=== PATIENT | female | born 1995 | race American Indian/Alaskan Native ===

== ENCOUNTER 2016-11-25 23:36 | Emergency (ER) | payer MEDICAID ==
[2016-11-26 00:34] LABS: Basophils % (Auto) 0.6 % (0.0-1.8); Eosinophils % (Auto) 3.1 % (0.0-4.3); Hematocrit 34.4 % (30.3-42.9); Hemoglobin 11.3 gm/dl (10.1-14.3); Mean Corpuscular HGB Conc 33 % (30-34); Mean Corpuscular Hemoglobin 28 pg (28-32); Mean Corpuscular Volume 87 fl (79-97); Platelet Count 322 K/mm3 (140-440); Red Blood Count 3.97 M/mm3 (3.65-5.03); Red Cell Distribution Width 13.4 % (13.2-15.2); White Blood Count 9.9 K/mm3 (4.5-11.0)
[2016-11-26 00:56] LABS: Alanine Aminotransferase 8 units/L (7-56); Albumin 3.4 g/dL (3.9-5); Albumin/Globulin Ratio 1.2 %; Alkaline Phosphatase 36 units/L (35-129); Anion Gap 14 mmol/L; Bilirubin,Total 0.2 mg/dL (0.1-1.2); Blood Urea Nitrogen 15 mg/dL (7-17); Carbon Dioxide 25 mmol/L (22-30); Chloride 102.6 mmol/L (98-107); Glucose 94 mg/dL (65-100); Lipase 32 units/L (13-60); Potassium 3.5 mmol/L (3.6-5.0); Sodium 138 mmol/L (137-145); Total Protein 6.3 g/dL (6.3-8.2)
[2016-11-26 04:40] LABS: Bacteria,Urine 1+ /HPF (Negative); Bilirubin,Urine NEG (Negative); Blood,Urine NEG (Negative); Ketones,Urine NEG (Negative); Leukocyte Esterase,Urine LG (Negative); Mucus,Urine 3+ /HPF; Nitrite,Urine NEG (Negative); Urobilinogen,Urine < 2.0 mg/dL (<2.0)
--- NOTE | 2016-11-26 05:09 | Ultrasound Report ---
FINAL REPORT PROCEDURE: US OB \T\gt; = 14 WEEKS FETUS TECHNIQUE: Real-time transabdominal sonography of the uterus, placenta, amniotic fluid, adnexa, and fetus was performed with image documentation. Measurements were obtained to determine age/size. M-mode Doppler was used to document heartbeat. CPT 61611 HISTORY: Pelvic and abdominal pain in . COMPARISON: No prior studies are available for comparison. FINDINGS: There is single live intrauterine fetus. The fetus is in breech presentation during the exam. heart rate noted at 137 beats per minute. Subjectively the amniotic fluid appears within normal limits. The placenta is posterior with no evidence of placenta previa. The cervix is closed with a length of 4.3 centimeters. There are no gross anomalies noted. However the spine could not be optimally seen due to position. Composite measurements for this fetus give an age of 19 weeks and 5 days which gives a due date of April 17, 2017 based on this exam. IMPRESSION: 1. There is a single live intrauterine fetus. 2. Fetus is in breech presentation during the exam. 3. Composite measurements give an age of 19 weeks and 5 days which gives a due date of April 17, 2017 based on this exam. There no prior ultrasound exams to compare. 4. There are no gross anomalies noted. However due to positioning, the spine could not be optimally imaged.
[2016-11-26] MEDS ORDERED: SODIUM CHLORIDE IV ONE (06:19)
[2016-11-26] MEDS ORDERED: CEFTRIAXONE IV ONE (06:19)
--- NOTE | 2016-11-26 07:08 | Emergency Department Report ---
ED General Adult HPI - General Chief complaint: Abdominal Pain Stated complaint: STOMACH PAIN Time Seen by Provider: 11/26/16 06:17 Source: patient Mode of arrival: Ambulatory Limitations: No Limitations - History of Present Illness Initial comments: The pt c/o vague periumbilical abd discomfort that has now resolved. She is currently 19 weeks and 5 days I ultrasound yesterday. She had a normal heart rate. The placenta was posterior cervical length was 4.3 cm. No abnormality was noted. Patient denied any urinary type symptoms. She' s had no vaginal bleeding. She is a patient of my [facility]. -: Gradual, hour(s) Location: abdomen Radiation: non-radiation Severity scale (0 -10): 4 Quality: other (cramping) Consistency: now resolved Improves with: none Worsens with: none Associated Symptoms: denies other symptoms - Related Data Home Medications Medication Instructions Recorded Confirmed Last Taken Pnv with Ca,No.72/Iron/FA [Pnv 1 tab PO DAILY 03/01/15 03/01/15 Unknown Plus Multivit Tab] Previous Rx's Medication Instructions Recorded Last Taken Type Lidocaine/Prilocaine [Emla Cream] 5 gm TP ONCE #1 cream..g. 03/02/15 Unknown Rx Allergies Allergy/AdvReac Type Severity Reaction Status Date / Time peanut Allergy Angioedema Verified 08/04/14 15:58 ED Review of Systems ROS: Stated complaint: STOMACH PAIN Other details as noted in HPI Constitutional: denies: chills, fever Eyes: denies: eye pain, eye discharge, vision change ENT: denies: ear pain, throat pain Respiratory: denies: cough, shortness of breath, wheezing Cardiovascular: denies: chest pain, palpitations Endocrine: no symptoms reported Gastrointestinal: abdominal pain. denies: nausea, diarrhea Genitourinary: denies: urgency, dysuria, discharge Musculoskeletal: denies: back pain, joint swelling, arthralgia Skin: denies: rash, lesions Neurological: denies: headache, weakness, paresthesias Psychiatric: denies: anxiety, depression Hematological/Lymphatic: denies: easy bleeding, easy bruising ED Past Medical Hx - Past Medical History Previous Medical History?: No Hx Hypertension: No Hx Congestive Heart Failure: No Hx Diabetes: No Hx Deep Vein Thrombosis: No Hx Renal Disease: No Hx Sickle Cell Disease: No Hx Seizures: No Hx Asthma: No Hx COPD: No Hx HIV: No - Surgical History Past Surgical History?: No - Social History Smoking Status: Never Smoker Substance Use Type: None - Medications Home Medications: Home Medications Medication Instructions Recorded Confirmed Last Taken Type Pnv with Ca,No.72/Iron/FA [Pnv 1 tab PO DAILY 03/01/15 03/01/15 Unknown History Plus Multivit Tab] Lidocaine/Prilocaine [Emla Cream] 5 gm TP ONCE #1 cream..g. 03/02/15 Unknown Rx ED Physical Exam - General Limitations: No Limitations General appearance: alert, in no apparent distress - Head Head exam: Present: atraumatic, normocephalic - Eye Eye exam: Present: normal appearance. Absent: scleral icterus - ENT ENT exam: Present: normal exam, mucous membranes moist - Neck Neck exam: Present: normal inspection - Respiratory Respiratory exam: Present: normal lung sounds bilaterally. Absent: respiratory distress - Cardiovascular Cardiovascular Exam: Present: regular rate, normal rhythm. Absent: systolic murmur, diastolic murmur, rubs, gallop - GI/Abdominal GI/Abdominal exam: Present: soft, normal bowel sounds. Absent: distended, tenderness, guarding, rebound, rigid - Extremities Exam Extremities exam: Present: normal inspection - Back Exam Back exam: Present: normal inspection - Neurological Exam Neurological exam: Present: alert, oriented X3, CN II-XII intact. Absent: motor sensory deficit - Psychiatric Psychiatric exam: Present: normal affect, normal mood - Skin Skin exam: Present: warm, dry, intact, normal color. Absent: rash ED Course Vital Signs 11/25/16 11/26/16 11/26/16 23:43 03:36 03:38 Temperature 97.7 F 98.9 F Pulse Rate 92 H 82 Respiratory 20 14 14 Rate Blood Pressure 112/74 Blood Pressure 108/61 [Left] O2 Sat by Pulse 98 100 100 Oximetry - Reevaluation(s) Reevaluation #1: Discussed with Dr. Dobbs. She did not recommend monitoring or admission. She will be leaving a prescription for [facility] to [facility]. She will be following up with the patient. Culture is pending. 11/26/16 07:14 ED Medical Decision Making - Lab Data Result diagrams: 11/26/16 00:24 11/26/16 00:24 Laboratory Results - last 24 hr 11/26/16 11/26/16 11/26/16 00:24 00:24 00:24 WBC 9.9 RBC 3.97 Hgb 11.3 Hct 34.4 MCV 87 MCH 28 MCHC 33 RDW 13.4 Plt Count 322 Lymph % (Auto) 18.3 [place] % (Auto) 7.8 H Eos % (Auto) 3.1 Baso % (Auto) 0.6 Lymph # 1.8 [place] # 0.8 Eos # 0.3 Baso # 0.1 Seg Neutrophils % 70.2 H Seg Neutrophils # 6.9 Sodium 138 Potassium 3.5 L Chloride 102.6 Carbon Dioxide 25 Anion Gap 14 BUN 15 Creatinine 0.6 L Estimated GFR > 60 BUN/Creatinine Ratio 25.00 Glucose 94 Calcium 9.0 Total Bilirubin 0.2 AST 11 ALT 8 Alkaline Phosphatase 36 Total Protein 6.3 Albumin 3.4 L Albumin/Globulin Ratio 1.2 Lipase 32 HCG, Qual Positive HCG, Quant Urine Color Urine Turbidity Urine pH Ur Specific [place] Urine Protein Urine Glucose (UA) Urine Ketones Urine Blood Urine Nitrite Urine Bilirubin Urine Urobilinogen Ur Leukocyte Esterase Urine WBC (Auto) Urine RBC (Auto) U Epithel Cells (Auto) Urine Bacteria (Auto) Urine Mucus 11/26/16 11/26/16 00:24 03:35 WBC RBC Hgb Hct MCV MCH MCHC RDW Plt Count Lymph % (Auto) [place] % (Auto) Eos % (Auto) Baso % (Auto) Lymph # [place] # Eos # Baso # Seg Neutrophils % Seg Neutrophils # Sodium Potassium Chloride Carbon Dioxide Anion Gap BUN Creatinine Estimated GFR BUN/Creatinine Ratio Glucose Calcium Total Bilirubin AST ALT Alkaline Phosphatase Total Protein Albumin Albumin/Globulin Ratio Lipase HCG, Qual HCG, Quant 06792 H Urine Color Yellow Urine Turbidity Slightly-cloudy Urine pH 7.0 Ur Specific [place] 1.031 H Urine Protein 30 mg/dl Urine Glucose (UA) Neg Urine Ketones Neg Urine Blood Neg Urine Nitrite Neg Urine Bilirubin Neg Urine Urobilinogen < 2.0 Ur Leukocyte Esterase Lg Urine WBC (Auto) 151.0 H Urine RBC (Auto) 8.0 U Epithel Cells (Auto) 37.0 H Urine Bacteria (Auto) 1+ Urine Mucus 3+ - Radiology Data Radiology results: report reviewed interpreted by me: US reviewed with Dr. Dobbs. Critical care attestation.: If time is entered above; I have spent that time in minutes in the direct care of this critically ill patient, excluding procedure time. ED Disposition Clinical Impression: with 19 completed weeks gestation Acute cystitis Qualifiers: Hematuria presence: with hematuria Qualified Code(s): N30.01 - Acute cystitis with hematuria Disposition: DISCHARGED TO HOME OR SELFCARE Is pt being admited?: No Does the pt Need Aspirin: No Condition: Stable Instructions: Abdominal Pain (ED), Urinary Tract Infection in Women (ED), (ED) Additional Instructions: Follow up with Dr. Dobbs. Return any acute change or problem. Go to [facility] for your antibiotic prescription called in by Dr. Dobbs. Referrals: PRIMARY CARE, [Primary Care Provider] - 3-5 Days [facility] [Provider Group] - 2-3 Days Time of Disposition: 07:21
[2016-11-26 07:58] VITALS: BP 97/54
== END 2016-11-26 08:26 | disposition home or self-care (01) ==
LOC: ED 23:36
DX: O23.92 Unspecified genitourinary tract infection in pregnancy, second trimester (principal); N30.01 Acute cystitis with hematuria; Z91.010 Allergy to peanuts; Z3A.19 19 weeks gestation of pregnancy
CPT/HCPCS: 36415; 76805; 80053; 81001; 83690; 84702; 84703; 85025; 87086; 96365; 99284; J0696

== ENCOUNTER 2017-04-13 19:14 | Outpatient (CLI) | payer MEDICAID ==
[2017-04-13 19:44] VITALS: BP 107/64
[2017-04-13] MEDS ORDERED: LACTATED RINGERS 1,000 ML IV ONE (20:05)
[2017-04-13] MEDS ORDERED: VISTARIL PO ONE (20:30)
== END 2017-04-13 21:30 | disposition home or self-care (01) ==
LOC: TRG 19:14
PROVIDERS: ATTEND Obstetrics & Gynecology
DX: O47.03 False labor before 37 completed weeks of gestation, third trimester (principal); O26.893 Other specified pregnancy related conditions, third trimester; Z3A.39 39 weeks gestation of pregnancy
CPT/HCPCS: 59025; 96360; J7120

== ENCOUNTER 2017-04-15 04:16 | Inpatient (IN) | payer MEDICAID ==
[2017-04-15] MEDS ORDERED: STADOL ONE (04:41)
[2017-04-15] MEDS ORDERED: LACTATED RINGERS 1,000 ML ONE (04:41)
[2017-04-15] MEDS ORDERED: POLYCILLIN/NS 2 GM/100 ML 2 GM/100 ML BAG IV ONE (04:42)
[2017-04-15] MEDS ORDERED: BRETHINE IVP PRN ×2 (04:42→05:26)
[2017-04-15] MEDS ORDERED: ePHEDrine SULFATE IV PRN ×3 (04:42→05:49)
[2017-04-15] MEDS ORDERED: MINERAL OIL PO PRN (04:42)
[2017-04-15] MEDS ORDERED: XYLOCAINE 2% INFILTRATI ONE ×2 (04:42→05:26)
[2017-04-15] MEDS ORDERED: BRETHINE SUB-Q PRN ×2 (04:42→05:26)
[2017-04-15] MEDS ORDERED: STADOL IV PRN (04:42)
[2017-04-15] MEDS: LACTATED RINGERS 1,000 ML IV SCH ×2 (04:54→06:36)
[2017-04-15] MEDS ORDERED: PITOCin/NS 20 UNIT/1000ML DRIP 20 UNITS/1,000 ML BAG IV SCH (05:00)
--- NOTE | 2017-04-15 05:19 | History and Physical Report ---
History of Present Illness Date of examination: 04/15/17 Date of admission: 04/15/17 04:25 Chief complaint: 21 yo at 39wk 3d with EDC 04/19/2017 admitted in active labor 4 cm with bulging membranes. GBS neg, Rub IM History of present illness: Remainder of H&P from [facility] and confirmed today OB Intake Father of baby: Edison Melton Vital Signs Height: 64 in. Weight (lb): 140 BMI: 24.1 BP: 110/ 60 mm Hg Ur. Protein: Negative Ur. Glucose: Negative Chief Complaint/Current Status: pt presents for missed period; c/o vomitting..tward LMP 07/13 some vomiting Menstrual History Regularity: regular Menses every: 28 days Duration: 3 LMP: 07/13/2016 LMP reliability: definite LMP character: normal test type: urine test Date: 09/21/2016 BC at conception: none Planned ? yes EDC Calculations LMP: 04/19/2017 EDC Confirmation: 04/19/2017 Gestational Age: 10 weeks EDC Confirmation: 04/19/2017 Past History : 2 Term Births: 1 Living Children: 1 # 1 Delivery date: 02/28/2015 Weeks Gestation: 39 10/17 Delivery type: Vaginal Delivery location: [facility] Infant Sex: male weight: 6.75 Comments: none Risk Factors: Smoked Tobacco Use: Never smoker Smokeless Tobacco Use: Never Passive smoke exposure: no Drug use: no HIV high-risk behavior: low risk Alcohol use: no Past Medical History: Reviewed history from 08/24/2014 and no changes required: none Past Surgical History: Reviewed history from 08/24/2014 and no changes required: negative Past Medical History Anesthesia Complications: negative Anemia: negative Autoimmune Disorder: negative Bleeding Disorder: negative Blood Transfusions: negative Breast Disease: negative Diabetes: negative Heart Disease: negative Hypertension: negative Hepatitis/Liver Disease: negative Kidney Disease/UTI: negative Neurologic/Epilepsy/Migraines: negative Phlebitis/Varicosities: negative Psychiatric: negative Pulmonary Disease/Asthma: negative Thyroid Disease: negative Hospitalizations: negative Surgery (Non-bus driver/monitor): negative Abnormal PAP: negative MODESTA Exposure: negative Infertility: negative Uterine Anomaly: negative Uterine Surgery (not C/S): negative Other Gynecologic Problems: negative Social Hx: [facility] Smoking History: Patient has never smoked. Infection History Hx of STD: none HIV Risk Eval: low risk Hepatitis B Risk Eval: low risk Personal hx. of genital herpes: no Partner hx. of genital herpes: no Varicella/Chicken Pox Status: Previous Disease Genetic History Congenital Heart Defect: Mom: no Dad: no Alayna Disease: Mom: no Dad: no Thalassemia Mom: no Dad: no Neural Tube Defect Mom: no Dad: no Down's Syndrome Mom: no Dad: no Jerson-Sachs Mom: no Dad: no Sickle Cell Disease/Trait Mom: no Dad: no Hemophilia Mom: no Dad: no Muscular Dystrophy Mom: no Dad: no Cystic Fibrosis Mom: no Dad: no [place] Chorea Mom: no Dad: no Mental Retardation Mom: no Dad: no Fragile X Mom: no Dad: no Other Genetic/Chromosomal Disorder Mom: no Dad: no Child w/other defect Mom: no Dad: no Enviromental Exposures Xray Exposure: no Medication, drug, or alcohol use since LMP: no Chemical/Other Exposure: no Exposure to Cat Liter: no Active Medications: None Current Allergies (reviewed today): No known allergies Laboratory Results Date/Time Collected: 09/21/2016 Routine Urinalysis Leukocytes: negative Nitrite: negative Urobilinogen: negative Protein: Negative Blood: negative Ketone: negative Bilirubin: negative Glucose: Negative Urine HCG: positive Review of Systems General Denies fever, chills, sweats, anorexia, fatigue, weakness, malaise, weight loss and sleep disorder. Denies nausea, vomiting, headache, swelling of legs, abdominal pain, vaginal discharge, vaginal bleeding and contractions. Denies vaginal discharge, incontinence, dysuria, hematuria, urinary frequency, amenorrhea, menorrhagia, abnormal vaginal bleeding, pelvic pain, genital sores, decreased libido, painful periods, painful sex, urinary urgency, hot flashes, vaginal dryness, vaginal itching and vaginal odor. CV Denies chest pains, palpitations, syncope, dyspnea on exertion, orthopnea, PND and peripheral edema. Resp Denies cough, dyspnea at rest, excessive sputum, hemoptysis, wheezing and pleurisy. GI Denies nausea, vomiting, diarrhea, constipation, change in bowel habits, abdominal pain, melena, hematochezia, jaundice, gas/bloating, indigestion/ heartburn, dysphagia and odynophagia. Endo Denies cold intolerance, heat intolerance, polydipsia, polyphagia, polyuria and unusual weight change. Breast Denies left breast lump, right breast lump, nipple discharge, bloody discharge from nipple, breast pain, abnormal mammogram and breast enlargement. MS Denies back pain, joint pain, joint swelling, muscle cramps, muscle weakness, stiffness, arthritis, sciatica, restless legs, leg pain at night and leg pain with exertion. Derm Denies rash, itching, dryness and suspicious lesions. Neuro Denies paralysis, paresthesias, headache, seizures, tremors, vertigo, transient blindness, frequent falls, frequent headaches and difficulty walking. Psych Denies depression, anxiety, irritability and mood swings. Eyes Denies blurring, diplopia, irritation, discharge, vision loss, eye pain and photophobia. ENT Denies earache, ear discharge, tinnitus, decreased hearing, nasal congestion, nosebleeds, sore throat and hoarseness. Allergy Denies urticaria, allergic rash, hay fever and recurrent infections. Heme Denies abnormal bruising, bleeding and enlarged lymph nodes. PHYSICAL EXAM HEENT: PERRLA, normal conjunctiva, external nose and nasal mucosa normal, oropharynx clear Neck/Thyroid: supple, thyroid normal Skin no significant abnormal lesions or rashes Chest: respiratory effort normal, clear to auscultation Breasts: normal without skin changes or masses CV: regular, normal S1-S2, no murmur, no rub, no gallop Abdomen: normal bowel sounds, soft, nontender, no HSM Musculoskeletal: grossly normal ROM in joints, no joint tenderness or muscle weakness Neuro: grossly normal DTRs, sensation, strength, cranial nerves Extremities: no clubbing, cyanosis, or edema [employer]LECT[employer]LE [employer] Exams Vulva/Vagina: No lesions, normal BUS, normal rugae Cervix: No lesions; no cervical motion tenderness Uterus: normal size and position, midline, mobile--9 week size, can't hear FHT but baby crying in room Adnexae: no masses or tenderness Rectovaginal: no masses or tenderness Flowsheet View for Follow-up Visit Estimated weeks of gestation: 10 Weight: 140 Blood pressure: 110 / 60 Urine protein: Negative Urine glucose: Negative Urine nitrite: negative Past History - Obstetrical History : 2 Medications and Allergies Allergies Allergy/AdvReac Type Severity Reaction Status Date / Time peanut Allergy Angioedema Verified 08/04/14 15:58 Home Medications Medication Instructions Recorded Confirmed Last Taken Type Pnv with Ca,No.72/Iron/FA [Pnv 1 tab PO DAILY 03/01/15 03/01/15 Unknown History Plus Multivit Tab] Lidocaine/Prilocaine [Emla Cream] 5 gm TP ONCE #1 cream..g. 03/02/15 Unknown Rx Active Meds: Active Medications Butorphanol Tartrate (Stadol) 2 mg IV Q2H PRN PRN Reason: Pain , Severe (7-10) Last Admin: 04/15/17 04:53 Dose: 2 mg Ampicillin Sodium (Polycillin/Ns 2 Gm/100 Ml) 2 gm in 100 mls @ 100 mls/hr IV ONCE ONE PRN Reason: Protocol Stop: 04/15/17 05:41 Last Admin: 04/15/17 05:15 Dose: 100 mls/hr Lactated Ringer's (Lactated Ringers) 1,000 mls @ 125 mls/hr IV DIRECT ANDREIA Last Admin: 04/15/17 04:54 Dose: 125 mls/hr Oxytocin/Sodium Chloride (Pitocin/Ns 20 Unit/1000ml Drip) 20 units in 1,000 mls @ 125 mls/hr IV DIRECT ANDREIA Mineral Oil (Mineral Oil) 30 ml PO QHS PRN PRN Reason: Constipation - Vital Signs Vital signs: Vital Signs Resp 18 04/15/17 04:53 Temp Pulse Resp BP Pulse Ox 18 04/15/17 04:53 Results All other labs normal. Assessment and Plan - Patient Problems (1) Active labor at term Onset Date: 04/15/17 Current Visit: No Status: Acute (2) 39 weeks gestation of Onset Date: 04/12/17 Current Visit: No Status: Acute
[2017-04-15 05:23] LABS: Hematocrit 36.4 % (30.3-42.9); Hemoglobin 12.2 gm/dl (10.1-14.3); Mean Corpuscular HGB Conc 34 % (30-34); Mean Corpuscular Hemoglobin 28 pg (28-32); Mean Corpuscular Volume 84 fl (79-97); Platelet Count 309 K/mm3 (140-440); Red Blood Count 4.33 M/mm3 (3.65-5.03); Red Cell Distribution Width 14.9 % (13.2-15.2); White Blood Count 8.3 K/mm3 (4.5-11.0)
[2017-04-15] MEDS ORDERED: ZOFRAN IV PRN (05:26)
[2017-04-15] MEDS ORDERED: NARCAN 0.4 MG/1 ML IV PRN (05:26)
[2017-04-15] MEDS ORDERED: NARCAN 2 MG/2 ML IV PRN (05:49)
--- NOTE | 2017-04-15 05:49 | Anesthesia Consultation ---
Anesthesia Consult and Med Hx Date of service: 04/15/17 - Airway Anesthetic Teeth Evaluation: Good ROM Head & Neck: Adequate Mental/Hyoid Distance: Adequate Mallampati Class: Class II Intubation Access Assessment: Good - Pulmonary Exam CTA: Yes - Cardiac Exam Cardiac Exam: No Murmur - Pre-Operative Health Status ASA Pre-Surgery Classification: ASA2 Proposed Anesthetic Plan: Epidural - Pulmonary Hx Asthma: No COPD: No Hx Pneumonia: No - Cardiovascular System Hx Hypertension: No - Central Nervous System Hx Seizures: No Hx Psychiatric Problems: No - Endocrine Hx Renal Disease: No Hx End Stage Renal Disease: No Hx Hypothyroidism: No Hx Hyperthyroidism: No - Hematic Hx Anemia: No Hx Sickle Cell Disease: No - Other Systems Hx Alcohol Use: No
[2017-04-15] MEDS ORDERED: ePHEDrine SULFATE ONE ×2 (05:59→06:06)
[2017-04-15] MEDS ORDERED: fentaNYL-BUPIV 2 MCG/ML-0.125% 200 MCG/100 ML BAG EPIDURAL SCH (06:00)
--- NOTE | 2017-04-15 06:24 | Progress Note ---
Assessment and Plan Epidural placed AROM thick meconium ISE applied SVE 8,100,0 Re-eval as needed Anticipate delivery Subjective - Subjective Date of service: 04/15/17 (comfortable with epidural) Patient reports: movement normal Objective - Vital Signs Vital Signs: Vital Signs - 12hr 04/15/17 04/15/17 04/15/17 04:53 05:32 05:33 Pulse Rate 99 H 104 H Respiratory 18 Rate Blood Pressure 136/63 O2 Sat by Pulse 98 Oximetry 04/15/17 04/15/17 04/15/17 05:34 05:35 05:36 Pulse Rate 96 H 99 H 101 H Respiratory Rate Blood Pressure 133/66 134/63 O2 Sat by Pulse 86 Oximetry 04/15/17 04/15/17 04/15/17 05:38 05:40 05:41 Pulse Rate 97 H 98 H 97 H Respiratory Rate Blood Pressure 128/67 142/66 O2 Sat by Pulse 98 Oximetry 04/15/17 04/15/17 04/15/17 05:42 05:44 05:46 Pulse Rate 109 H 99 H 92 H Respiratory Rate Blood Pressure 124/59 119/64 128/70 O2 Sat by Pulse Oximetry 04/15/17 04/15/17 04/15/17 05:48 05:50 05:52 Pulse Rate 88 86 87 Respiratory Rate Blood Pressure 132/71 123/62 111/62 O2 Sat by Pulse Oximetry 04/15/17 04/15/17 04/15/17 05:54 05:56 05:58 Pulse Rate 85 98 H 88 Respiratory Rate Blood Pressure 107/57 108/57 98/54 O2 Sat by Pulse Oximetry 04/15/17 04/15/17 04/15/17 06:00 06:02 06:04 Pulse Rate 83 88 86 Respiratory Rate Blood Pressure 118/57 119/64 123/63 O2 Sat by Pulse 99 Oximetry 04/15/17 04/15/17 04/15/17 06:05 06:06 06:08 Pulse Rate 91 H 91 H 97 H Respiratory Rate Blood Pressure 123/58 121/57 O2 Sat by Pulse 99 Oximetry 04/15/17 04/15/17 04/15/17 06:10 06:12 06:14 Pulse Rate 92 H 94 H 94 H Respiratory Rate Blood Pressure 122/58 123/57 124/61 O2 Sat by Pulse 100 Oximetry 04/15/17 04/15/17 06:15 06:16 Pulse Rate 87 93 H Respiratory Rate Blood Pressure 115/58 O2 Sat by Pulse 98 Oximetry - Exam Breasts: deferred Cardiovascular: Regular rate Lungs: Normal air movement Abdomen: Present: normal appearance, soft. Absent: distention, tenderness Uterus: Present: normal FHR: auscultation normal, category 2 (variables r/t hypotension after epidural Resolved with fluid, ephedrin, and position chg) Uterine Contraction Monitor Mode: Internal Cervical Dilatation: 8 (AROM thick meconium) Cervical Effacement Percentage: 100 (ISE placed) station: 0 Uterine Contraction Pattern: Irregular Uterine Contraction Intensity: Moderate Extremities: normal Deep Tendon Reflex Grade: Normal +2 - Labs Labs: Laboratory Results - last 24 hr 04/15/17 04:25 WBC 8.3 RBC 4.33 Hgb 12.2 Hct 36.4 MCV 84 MCH 28 MCHC 34 RDW 14.9 Plt Count 309
[2017-04-15] MEDS ORDERED: PITOCin/NS 30 UNIT/500ML 30 UNITS/500 ML BAG IV SCH (07:00)
[2017-04-15] MEDS ORDERED: METHERGINE IM ONE ×2 (07:12→07:19)
--- NOTE | 2017-04-15 07:33 | Procedure Note ---
OB Delivery Note - Delivery Date of Delivery: 04/15/17 Raiser Helper: TOM CHIN Estimated blood loss: 500cc - Vaginal Delivery presentation: vertex Delivery position: OA Intrapartum events: meconium Delivery induction: none Delivery augmentation: rupture of membranes Delivery monitor: external uterine, internal FHT Route of delivery: Delivery placenta: spontaneous Delivery cord: 3 umbilical vessels Episiotomy: none Delivery laceration: none Anesthesia: epidural Delivery comments: NICU and RT called to delivery d/t meconium live born female over intact perineum Cord clamped and cut baby passed to warmer. Placenta and membrane delivered complete and intact, 3 vessel cord. Pit IVFs Uterus boggy Resolved with massage, expressed several clots, Methergine IM given. 8/9, EBL 500, Wgt 7-4. Mom and baby remain LDR stable. FF @ umb Lochia small. - A at 1 minute: 8 at 5 minutes: 9 Infant Gender: Female (wgt 7-4)
[2017-04-15] MEDS ORDERED: TYLENOL PO PRN (08:00)
[2017-04-15] MEDS ORDERED: PHENERGAN PO PRN (08:00)
[2017-04-15] MEDS ORDERED: BENADRYL PO PRN (08:00)
[2017-04-15] MEDS ORDERED: PHENERGAN PR PRN (08:00)
[2017-04-15] MEDS ORDERED: NORCO 5/325 PO PRN (08:00)
[2017-04-15] MEDS ORDERED: SODIUM CHLORIDE FLUSH SYRINGE 10 ML IV PRN (08:00)
[2017-04-15] MEDS ORDERED: MILK OF MAGNESIA PO PRN (08:00)
[2017-04-15] MEDS ORDERED: LANSINOH TP PRN (08:00)
[2017-04-15] MEDS ORDERED: TUCKS PAD TP PRN (08:00)
[2017-04-15] MEDS ORDERED: DULCOLAX PR PRN (10:00)
[2017-04-15] MEDS: MOTRIN PO SCH ×3 (10:29→21:07)
[2017-04-15] MEDS: COLACE PO SCH ×2 (10:30→21:07)
[2017-04-15 19:27] LABS: Hematocrit 35.3 % (30.3-42.9); Hemoglobin 11.6 gm/dl (10.1-14.3)
[2017-04-16] MEDS: MOTRIN PO SCH ×4 (04:57→21:20)
[2017-04-16] MEDS ORDERED: BOOSTRIX IM ONE (06:00)
--- NOTE | 2017-04-16 09:09 | Discharge Summary ---
Providers - Providers Date of Admission: 04/15/17 04:25 Date of discharge: 04/16/17 Attending physician: CHRISTINE MARTISN Primary care physician: CHRISTINE MARTINS Hospitalization Condition: Good Disposition: DC-01 TO HOME OR SELFCARE - Discharge Diagnoses (1) Single live Status: Acute (2) Spontaneous vaginal delivery Status: Acute Core Measure Documentation - Palliative Care Palliative Care/ Comfort Measures: Not Applicable - Core Measures Any of the following diagnoses?: none Exam - Physical Exam Narrative exam: minimal bleeding, desires d/c home today - Constitutional Vitals: Temp Pulse Resp BP Pulse Ox 98.0 F 82 20 113/63 98 04/16/17 07:55 04/16/17 07:55 04/16/17 08:14 04/16/17 07:55 04/15/17 06:50 General appearance: Present: no acute distress - Respiratory Respiratory effort: normal - Extremities Extremities: no ischemia, No edema - Abdominal General gastrointestinal: Present: soft, non-tender Female genitourinary: Present: other (fundus firm, NT, below umbilicus) - Integumentary Integumentary: Present: clear, warm, dry - Psychiatric Psychiatric: appropriate mood/affect Plan Activity: other (no sex) Weight Bearing Status: Weight Bear as Tolerated Diet: regular Follow up with: CHRISTINE MARTINS MD [Primary Care Provider] - 6 Weeks
[2017-04-16] MEDS ORDERED: M-M-R II VACCINE SUB-Q ONE (10:00)
--- NOTE | 2017-04-16 10:18 | Progress Note ---
Subjective Date of service: 04/16/17 Principal diagnosis: IUP Interval history: Patient seen post-delivery day 1, satisfied with epidural and ambulating. Objective - Constitutional Vitals: Vital Signs - 12hr 04/16/17 04/16/17 04/16/17 00:20 04:57 07:55 Temperature 97.7 F 98.0 F Pulse Rate [ 84 82 Right Brachial] Respiratory 18 18 19 Rate Blood Pressure 116/63 113/63 [Right Arm] 04/16/17 08:14 Temperature Pulse Rate [ Right Brachial] Respiratory 20 Rate Blood Pressure [Right Arm] - Labs CBC & Chem 7: 04/15/17 18:58
[2017-04-16] MEDS: PRENATAL VITAMIN PO SCH (12:18)
[2017-04-16] MEDS: COLACE PO SCH (21:20)
[2017-04-17] MEDS: MOTRIN PO SCH ×2 (03:00→08:27)
[2017-04-17] MEDS: COLACE PO SCH (10:42)
[2017-04-17] MEDS: PRENATAL VITAMIN PO SCH (10:43)
[2017-04-17 13:50] VITALS: BP 116/62
== END 2017-04-17 14:00 | disposition home or self-care (01) | DRG 775 ==
LOC: TRG 04:16 → LD 04:25 → OB 09:19
PROVIDERS: ADMIT Obstetrics & Gynecology; ATTEND Obstetrics & Gynecology
PROC: 10E0XZZ Delivery of Products of Conception, External Approach (ICD-10-PCS; principal; 2017-04-15)
PROC: 10907ZC Drainage of Amniotic Fluid, Therapeutic from Products of Conception, Via Natural or Artificial Opening (ICD-10-PCS; 2017-04-15)
PROC: 00HU33Z Insertion of Infusion Device into Spinal Canal, Percutaneous Approach (ICD-10-PCS; 2017-04-15)
PROC: 3E0R3CZ (ICD-10-PCS; 2017-04-15)
DX: O77.0 Labor and delivery complicated by meconium in amniotic fluid (principal); Z3A.39 39 weeks gestation of pregnancy; Z37.0 Single live birth; Z91.010 Allergy to peanuts
CPT/HCPCS: 36415; 85014; 85018; 85027; 86592; 86850; 86900; 86901; 88307; 99211; A6250; G0463; J0290; J0595; J2210; J2405; J2590; J7120